=== PATIENT | male | born 2005 | race Caucasian/White ===

== ENCOUNTER 2025-04-23 16:33 | Emergency (ER) | payer SELFPAY ==
--- NOTE | ~2025-04-23 | XR_ITS ---
XR ankle RT min 3V 04/23/2025 17:09 INDICATION: Right ankle pain PROCEDURE: 4 views right ankle COMPARISON: No prior studies for comparison. FINDINGS: Fracture, dislocation or subluxation is not identified. The soft tissues appear within normal limits. No foreign bodies are identified. IMPRESSION: 1: NO ACUTE BONE OR JOINT ABNORMALITY IDENTIFIED. Reviewed, dictated and finalized at location I. N PULLER
[2025-04-23 16:44] VITALS: BP 123/78; PULSE 94; RESP 22; TEMP 36.6; O2SAT 98
--- NOTE | 2025-04-23 18:09 | ED_ITS ---
HPI - Extremity Injury (Lower) General Chief Complaint: Extremity Injury, Lower Stated Complaint: right ankle pain Time Seen by Provider: 04/23/25 17:30 History of Present Illness HPI Narrative: Patient is a 20-year-old male who presents to the ER with right ankle/heel pain. He reports approximately 5 days ago he stomped on the ground and fell immediately afterwards because his ankle gave out on me. Patient endorses pain with any pressure on the heel, including ambulation. He endorses pain up his bilateral ankle and the distal portion of his right foot. Patient denies any medical history relevant to this ER visit and does not take any daily medications. Related Data Allergies Allergy/AdvReac Type Severity Reaction Status Date / Time No Known Allergies Allergy Verified 04/23/25 16:35 Review of Systems Review of Systems: All systems reviewed & are unremarkable except as noted in HPI and below Exam Narrative: GENERAL: Well appearing, well-nourished, non-toxic, in no acute distress. HEAD: Normocephalic, atraumatic. NECK: Supple. No adenopathy, no masses. RESPIRATORY: Airway patent, respirations nonlabored. Clear to auscultation bilaterally, no rales, rhonchi, wheezing. CARDIOVASCULAR: Regular rate and rhythm without murmurs, rubs, or gallops. Peripheral pulses 2+ and equal bilaterally. ABDOMINAL: Soft, nontender, nondistended, no hepatosplenomegaly. Normoactive BS. MUSCULOSKELETAL: Moves all extremities. Strength/ROM intact without gross deformities.Pain with palpation to bilateral calcaneus. SKIN: Warm, dry, normal color. No rashes. NEURO: A&O X3. Speech clear. Cranial nerves II-XII intact. No ataxic movements. PSYCHIATRIC: Appropriate mood and affect. Normal interaction. Course Vital Signs Vital signs: Vital Signs Temperature 36.6 C 04/23/25 16:44 Pulse Rate 94 04/23/25 16:44 Respiratory Rate 22 H 04/23/25 16:44 Blood Pressure 123/78 04/23/25 16:44 Pulse Oximetry 98 04/23/25 16:44 Oxygen Delivery Room Air 04/23/25 16:44 Temperature 36.6 C 04/23/25 16:44 Pulse Rate 94 04/23/25 16:44 Respiratory Rate 22 H 04/23/25 16:44 Blood Pressure 123/78 04/23/25 16:44 Pulse Oximetry 98 04/23/25 16:44 Oxygen Delivery Room Air 04/23/25 16:44 Procedures Orthopedic Splinting/Casting Injury #1: Splinting/Casting Date: 04/23/25 Splinting/Casting Time: 19:05 Side: right Lower Extremity Injury Location: ankle Lower Extremity Immobilizer: posterior splint Splint: customized in ED OCL: posterior Pre-Procedure Neuro Vascular Exam: normal Post-Procedure Neuro Vascular Exam: normal Other Orthopedic Equipment: crutches [facility] MDM Narrative Medical decision making narrative: Patient is a 20-year-old male who presents to the ER with right ankle/heel pain. He reports approximately 5 days ago he stomped on the ground and fell immediately afterwards because his ankle gave out on me. Patient endorses pain with any pressure on the heel, including ambulation. He endorses pain up his bilateral ankle and the distal portion of his right foot. Patient denies any medical history relevant to this ER visit and does not take any daily medications. Imaging Ordered: Right ankle x-ray Medications Ordered: Toradol 60 mg IM Results: Patient's x-ray indicates Fracture, dislocation or subluxation is not identified. The soft tissues appear within normal limits. No foreign bodies are identified. Diagnosis: Achilles tendonitis strain, calcaneous injury Patient Education/Shared MDM: Results of imaging shared with patient. Due to pain on the bottom of patient's heel he will be placed in an OCL splint and advised to follow-up with Podiatry or Orthopedic surgery. He endorses improvement of symptoms following OCL placement. Patient strongly advised to follow-up with orthopedic surgery or podiatric surgery as soon as possible. He will not be discharged home with any new prescriptions, but advised to take Ibuprofen as needed. Strict return precautions provided. Patient verbalized understanding and is in agreement with plan. Vital signs stable at time of discharge. All questions answered. Differential Diagnosis Differential Diagnosis: Calcaneus fracture, ankle sprain, ankle strain, Achilles tendon Imaging Data Attestation: I personally reviewed and interpreted this imaging study as follows: Radiologist's impression: ITS Impressions Ankle X-Ray 04/23/25 17:17 IMPRESSION: 1: NO ACUTE BONE OR JOINT ABNORMALITY IDENTIFIED. Discharge Plan Discharge Clinical Impression: Ankle sprain and strain, Achilles tendon injury Patient Disposition: Home Condition: Stable Instructions: Antibiotic Form, P.R.I.C.E. Treatment (ED) Additional Instructions: Please return to the ER with any worsening symptoms. Follow-up with Orthopedic surgery or Podiatry as soon as possible for further evaluation. Take all medications as prescribed, including regularly scheduled medications. Please take ibuprofen as needed for pain control. Patient Language: Montenegrin Follow-up/Referrals: Christina Rodrigez DPM [Physician, Podiatry] PHYSICIAN,[facility] DEPARTMENT CLERK [Primary Care Provider, Internal Medicine] Patrick Castorena MD [Physician, Orthopedics] Time of Disposition: 19:08
[2025-04-23] MEDS: KETOROLAC (*BKC) 60 MG/2 ML VIAL IM (18:46)
== END 2025-04-23 19:17 | disposition home or self-care (01) ==
PROVIDERS: Emergency Provider Registered Nurse
DX: S93.401A Sprain of unspecified ligament of right ankle, initial encounter (principal); S96.911A Strain of unspecified muscle and tendon at ankle and foot level, right foot, initial encounter; S86.001A Unspecified injury of right Achilles tendon, initial encounter; W18.39XA Other fall on same level, initial encounter
CPT/HCPCS: 29515; 73610; 96372; 99283; J1885